=== PATIENT | male | born 1975 | race Caucasian/White ===

== ENCOUNTER 2019-04-22 03:20 | Inpatient (IN) | payer OTHER ==
[~2019-04-22] VITALS: Ht 177.8 cm; Wt 146.1 kg
--- NOTE | 2019-04-22 03:22 | NUR ---
PT [id number] C/O MID EPIGASTRIC PAIN X2.5HR SHOE LACER. SHARP, INTERMITTENT. PER RA, REC'D 3 SPRAY NITRO AND 162MG ASPIRIN EN ROUTE. PT AOX4. NAD NOTED. RESP EVEN AND UNLABORED. PT ON MONITOR IN BED 4. WILL CONTINUE TO MONITOR.
--- NOTE | 2019-04-22 03:26 | NUR ---
TECH AT BEDSIDE FOR EKG
[2019-04-22] MEDS ORDERED: ONDANSETRON HCL/PF 4 MG/2 ML VIAL ONE (03:27)
[2019-04-22] MEDS ORDERED: MORPHINE SULFATE INJ 4 MG/ML DISP.SYRIN ONE (03:27)
[2019-04-22] MEDS ORDERED: ONDANSETRON HCL/PF 4 MG/2 ML VIAL IVP ONE (03:30)
[2019-04-22] MEDS ORDERED: IV NS 0.9% 500 ML BAG IV ONE (03:30)
[2019-04-22] MEDS ORDERED: MORPHINE SULFATE INJ 2 MG/ML DISP.SYRIN IV ONE (03:30)
--- NOTE | 2019-04-22 03:35 | NUR ---
BLOOD DRAWN AND GIVEN TO LAB
[2019-04-22 03:37] LABS: BASOPHILS % (AUTO) 0.7 % (0.0-2.0); EOSINOPHILS % (AUTO) 1.1 % (0.0-6.0); HEMATOCRIT 38 % (39-51); HEMOGLOBIN 12.7 g/dL (13.5-17.5); LYMPHOCYTES # (AUTO) 1.3 /CMM (0.8-4.8); LYMPHOCYTES % (AUTO) 26.8 % (20.0-44.0); MEAN CORPUSCULAR HGB CONC 33 g/dl (31.0-36.0); MEAN CORPUSCULAR VOLUME 99 fL (80-96); MONOCYTES # (AUTO) 0.5 /CMM (0.1-1.30); MONOCYTES % (AUTO) 10.8 % (2.0-12.0); NEUTROPHILS % (AUTO) 60.6 % (43.0-81.0); PLATELET COUNT (AUTO) 170 /CMM (150-450); RED BLOOD CELL COUNT(AUTO) 3.87 MIL/uL (4.5-6.0); WHITE BLOOD COUNT (AUTO) 4.9 K/uL (4.3-11.0)
[2019-04-22 03:48] LABS: CALCIUM, SERUM 8.4 mg/dL (8.5-10.1); CARBON DIOXIDE 27 mmol/L (21-32); CHLORIDE 108 mmol/L (98-107); CREATININE 1.2 mg/dL (0.6-1.3); GLUCOSE 142 mg/dL (74-106); POTASSIUM 3.5 mmol/L (3.5-5.1); SODIUM SERUM 143 mmol/L (136-145); UREA NITROGEN, BLOOD 16 mg/dL (7-18)
--- NOTE | 2019-04-22 03:48 | NUR ---
RADIOLOGY AT BEDSIDE FOR XRAY
[2019-04-22 04:00] LABS: ALANINE AMINOTRANSFERASE 20 U/L (12-78); ALKALINE PHOSPHATASE 86 U/L (46-116); ASPARTATE AMINOTRANSFERASE 19 U/L (15-37); B-TYPE NATRIURETIC PEPTIDE 369 PG/ML (0-125); BILIRUBIN,DIRECT 0.2 mg/dL (0.0-0.2); BILIRUBIN,TOTAL 0.7 mg/dL (0.2-1.0); TOTAL PROTEIN, SERUM 6.1 g/dL (6.4-8.2)
--- NOTE | 2019-04-22 05:31 | NUR ---
CARMEN CASAREZ, [place] PAGED.
--- NOTE | 2019-04-22 05:51 | NUR ---
TELE RM 109
[2019-04-22] MEDS ORDERED: ONDANSETRON HCL/PF 4 MG/2 ML VIAL IVP PRN (06:00)
[2019-04-22] MEDS ORDERED: ZOLPIDEM TARTRATE 5 MG TABLET PO PRN (06:00)
[2019-04-22] MEDS ORDERED: ACETAMINOPHEN 325 MG TABLET PO PRN (06:00)
[2019-04-22] MEDS ORDERED: MAGNESIUM HYDROXIDE 30 ML UDC PO PRN (06:00)
[2019-04-22] MEDS ORDERED: Z GUARD REMEDY 2 OZ OINT TP PRN (06:00)
[2019-04-22] MEDS ORDERED: HYDROCODONE/APAP 5/325MG 1 EACH TABLET PO PRN (06:00)
[2019-04-22 06:02] LABS: CHOLESTEROL 145 mg/dL (<200); HDL CHOLESTEROL 50 mg/dL (40-60); LDL 69 mg/dL (0-99); TRIGLYCERIDES 137 mg/dL (30-150)
--- NOTE | 2019-04-22 06:08 | NUR ---
report given to catherine gates.
--- NOTE | 2019-04-22 06:30 | NUR ---
WOOD [employer]ALER OPENING NOTE RECEIVED PATIENT A/OX4. PATIENT IS ON ROOM AIR WITH NO SIGNS OF ANY SOB. PATIENT DOES NO COMPLAIN OF ANY PAIN OR CHEST PAIN. LUNGS CLEAR [id number]. IV ON LT HAND WITH #18G SL PATENT AND FLUSHING. SOME LYMPHEDEMA ON BILATERAL LEGS NOTES AND AN ABRASION ON THE GROIN AREA. PATIENT LE EXTREMITY WEAKNESS AMBULATING WITH ASSISTANCE PATIENT. ALL SAFETY PRECAUTION APPLIED ENDORSED PATIENT TO MORNING NURSE
--- NOTE | 2019-04-22 07:30 | NUR ---
TELE/RN OPENING NOTES RECEIVED PATIENT IN BED AWAKE,RESTING COMFORTABLY. PATIENT ABLE TO RESPOND TO VERBAL STIMULI. PATIENT IS ALERT AND ORIENTED X4. NO PAIN OR ACUTE DISTRESS AT THIS TIME. RESPIRATION EVEN AND UNLABORED. SKIN IS DRY WARM TO TOUCH. PATIENT NOTED WITH IV ACCESS ON LT HAND WITH #18G SL. FLUSHING WELL. INTACT AND PATENT. NO S/S OF INFECTION AND INFILTRATION. ALL NEEDS ANTICIPATED. CALL LIGHT WITHIN REACHED. SAFETY MAINTAINED. BED LOCKED AND IN LOWEST POSITION. PLAN OF CARE DISCUSSED WITH PATIENT. WILL CONTINUE TO MONITOR CLOSELY.
[2019-04-22 07:38] VITALS: BP 169/99
[2019-04-22] MEDS ORDERED: LOSA50TA39 PO (07:44)
[2019-04-22] MEDS ORDERED: AMIO200T4 PO (07:44)
[2019-04-22] MEDS ORDERED: CARV25TA2 PO (07:44)
[2019-04-22] MEDS ORDERED: FURO-145 PO (07:44)
[2019-04-22] MEDS ORDERED: DABI150C PO (07:44)
[2019-04-22] MEDS ORDERED: ATOR10TA PO (07:44)
[2019-04-22 08:00] VITALS: BP 139/81
[2019-04-22 08:22] VITALS: BP 139/81
[2019-04-22] MEDS: CARVEDILOL 12.5 MG TABLET PO SCH ×2 (09:00→16:32)
[2019-04-22] MEDS: AMIODARONE HCL 200 MG TABLET PO SCH ×2 (09:00→16:32)
[2019-04-22] MEDS ORDERED: ASPIRIN 81 MG TAB.CHEW PO SCH (09:00)
[2019-04-22] MEDS ORDERED: FUROSEMIDE 20 MG TABLET PO SCH (09:00)
--- NOTE | 2019-04-22 09:30 | NUR ---
TELE/RN NOTES MEDICATION AMIODARONE AND COREG WAS HELD DUE TO HR BELONG LOW. HR OF 51. PATIENT CONTINUES TO REMAIN IN STABLE CONDITION. WILL CONTINUE TO MONITOR CLOSELY.
[2019-04-22] MEDS: DABIGATRAN ETEXILATE MESYLATE 150 MG CAPSULE PO SCH ×2 (09:34→16:30)
[2019-04-22] MEDS: LOSARTAN POTASSIUM 50 MG TABLET PO SCH ×2 (09:34→16:32)
[2019-04-22 12:00] VITALS: BP 137/90
[2019-04-22 16:00] VITALS: BP_SYST 115; BP_DIAS 57; BP_DIAS 61
--- NOTE | 2019-04-22 16:34 | NUR ---
TELE/RN NOTES MEDICATION AMIODARONE AND COREG WAS HELD DUE TO HR BELONG LOW. HR OF 53. PATIENT CONTINUES TO REMAIN IN STABLE CONDITION. WILL CONTINUE TO MONITOR CLOSELY.
--- NOTE | 2019-04-22 16:55 | NUR ---
TELE/RN NOTES PATIENT WAS PICKED UP BY NURSES TO DO HIS PROCEDURE OF CTCA OF HEART. PATIENT LEFT THE UNIT IN STABLE CONDITION. AWAITING FOR THE PATIENT'S RETURN.
[2019-04-22] MEDS ORDERED: METOPROLOL TARTRATE INJ 5 MG/5 ML AMPUL IVP PRN (17:00)
[2019-04-22] MEDS ORDERED: NITROGLYCERIN 0.4 MG/TAB BOTTLE SL ONE (17:00)
[2019-04-22] MEDS ORDERED: CT SWABBABLE VALVE TRANS SET 1 EA INFUS.SET MC ONE (17:01)
[2019-04-22] MEDS ORDERED: IOHEXOL-350 100 ML VIAL IV ONE (17:01)
[2019-04-22] MEDS ORDERED: IV NS 0.9% 250 ML IV ONE (17:01)
[2019-04-22] MEDS ORDERED: ATORVASTATIN 10 MG TABLET PO SCH ×2 (18:00→22:00)
--- NOTE | 2019-04-22 18:11 | NUR ---
TELE/RN NOTES PATIENT RETURNED FROM CTCA. PATIENT CONTINUES TO REMAIN IN STABLE CONDITION. WILL CONTINUES TO MONITOR CLOSELY.
--- NOTE | 2019-04-22 18:58 | NUR ---
TELE/RN OPENING NOTES PATIENT CONTINUES TO REMAIN IN STABLE CONDITION THROUGHOUT THE SHIFT. PROVIDED COMFORT AND SAFETY. PATIENT NOTED WITH IV ACCESS ON LT HAND WITH #18G SL AND RAC. FLUSHING WELL. INTACT AND PATENT. NO S/S OF INFECTION AND INFILTRATION. ALL NEEDS ANTICIPATED. ENDORSED TO PM NURSE TO RELAY THE RESULTS OF THE CTCA TO DR. KEANE. CALL LIGHT WITHIN REACHED. SAFETY MAINTAINED. BED LOCKED AND IN LOWEST POSITION. PLAN OF CARE DISCUSSED WITH PATIENT. WILL CONTINUE TO MONITOR CLOSELY. ENDORSED TO PM NURSE FOR JAY.
--- NOTE | 2019-04-22 19:25 | NUR ---
TELE/RN NOTED. PATIENT RECEIVED IN BED, RESTING COMFORTABLY AT THIS TIME. NO S/S OF ACUTE DISTRESS NOTED, RESPIRATION EVEN AND UNLABORED, NO SOB NOTED, PATIENT ALERT AND ORIENTED X4, DENIES ANY PAIN OR DISCOMFORT AT THIS TIME, PATIENT PENDING DISCHARGE HOME, WAITING FOR CTCA RESULTS. IV SITES, PATENT, NO S/S OF INFCTION, INFILTRATION NOTED. KEPT CLEAN AND DRY. CALL LIGHT WITHIN REACH. PATIENT ON TELE MONITORING WITH SINUS RHYTHM. SAFETY MAINTAINED, BED AT THE LOWEST LOCKED POSITION. WILL CONTINUE TO MONITOR PATIENT PER PLAN OF CARE.
--- NOTE | 2019-04-22 19:35 | NUR ---
PATIENT CTCA RESULTS RECEIVED AT THIS TIME, RELAYED TO DR KEANE WITH NEW ORDER THAT PATIENT IS OK TO DISCHARGE. NOTED, PATIENT MADE AWARE.
[2019-04-22 20:00] VITALS: BP 142/79
--- NOTE | 2019-04-22 20:25 | NUR ---
PATIENT DENIED INFLUENZA SHOT, HE SAID HE WILL TAKE IT LATER, HE DOESNT FEEL LIKE TAKING IT RIGHT NOW. MADE AWARE
[2019-04-22] MEDS ORDERED: INFLUENZA VACCINE 2019-20 0.5 ML DISP.SYRIN IM ONE (20:30)
--- NOTE | 2019-04-22 20:34 | NUR ---
OFFER PATIENT INFLUENZA SHOT BEFORE DISCHARGE, PATIENT AGREED.
--- NOTE | 2019-04-22 20:37 | NUR ---
PATIENT DISCHARGED HOME AT THIS TIME, DISCHARGED INSTRUCTION PROVIDED TO PATIENT, VERBALIZED UNDERSTANDING, PATIENT LEFT THE UNIT WITH HIS IN STABLE CONDITION, NO S/S OF ACUTE DISTRESS NOTED AT THIS TIME, REPARATION EVEN AND UNLABORED. NO SOB NOTED. PATIENT DENIES ANY PAIN OR DISCOMFORT.
== END 2019-04-22 22:00 | disposition home or self-care (01) | DRG 243 ==
LOC: ER 03:25 → TELE1 05:52
DX: K21.9 Gastro-esophageal reflux disease without esophagitis (principal); E66.01 Morbid (severe) obesity due to excess calories; E11.9 Type 2 diabetes mellitus without complications; I25.10 Atherosclerotic heart disease of native coronary artery without angina pectoris; G47.33 Obstructive sleep apnea (adult) (pediatric); Z88.2 Allergy status to sulfonamides; Z68.42 Body mass index [BMI] 45.0-49.9, adult; I48.0 Paroxysmal atrial fibrillation; E78.5 Hyperlipidemia, unspecified; I10 Essential (primary) hypertension; R93.89 Abnormal findings on diagnostic imaging of other specified body structures; I89.0 Lymphedema, not elsewhere classified; E78.00 Pure hypercholesterolemia, unspecified
CPT/HCPCS: 36415; 71045-TC; 75574; 80048-TC; 80061-TC; 80076-TC; 83880; 84484-TC; 85025-TC; 85730-TC; 86850-TC; 87081-TC; 93307-TC; G0378; J2270; J2405; J7040; J7050; Q2036; Q9967